=== PATIENT | female | born 1990 | race Caucasian/White ===

== ENCOUNTER 2024-02-08 17:35 | Emergency (ER) | payer SELFPAY ==
[~2024-02-08] VITALS: Ht 165.1 cm; Wt 50.0 kg
[2024-02-08 17:41] VITALS: O2SAT 100
[2024-02-08] MEDS: LIDOCAINE HCL 1%/EPI 1:200,000 30 ML VIAL MC ONE (18:15)
[2024-02-08] MEDS: LORAZEPAM 2MG/ML INJ IV STA (18:56)
[2024-02-08] MEDS: SULFAMETHOXAZOLE/TRIMETHOPRIM 800/160MG TABLET PO ONE (18:57)
[2024-02-08] MEDS: DIPHENHYDRAMINE 50MG/ML VIAL IV ONE (18:57)
[2024-02-08] MEDS: HALOPERIDOL LACTATE 5MG/ML VIAL IM STA (18:57)
[2024-02-08 19:12] LABS: CHLORIDE 108 mEq/L (98-107); POTASSIUM 3.4 mEq/L (3.5-5.1); SODIUM 143 mEq/L (136-145)
[2024-02-08 19:13] LABS: CALCIUM 8.8 mg/dL (8.7-10.4); CARBON DIOXIDE 29 mEq/L (21-32)
[2024-02-08 19:14] LABS: BASOPHILS % 0.1 % (0.0-2.0); EOSINOPHILS % 1.5 % (0.0-5.0); HEMATOCRIT. 32.5 % (36.0-48.0); HEMOGLOBIN. 10.3 g/dL (12.0-16.0); LYMPHOCYTES % 9.6 % (20.0-50.0); MEAN CORPUSCULAR HEMOGLOBIN 26.7 pg (28.0-32.0); MEAN CORPUSCULAR HGB CONC 31.8 g/dL (31.0-37.0); MEAN CORPUSCULAR VOLUME 84.1 fL (81.0-99.0); MEAN PLATELET VOLUME 7.7 fl (7.4-10.4); MONOCYTES % 4.8 % (2.0-8.0); PLATELET 464 x1000/uL (130-400); RED BLOOD CELL COUNT 3.86 mill/uL (4.2-5.4); RED CELL DISTRIBUTION WIDTH 18.1 % (11.6-14.6); WHITE BLOOD COUNT 16.9 x1000/uL (4.5-11.0)
[2024-02-08 19:17] LABS: HCG SCREEN NEGATIVE
[2024-02-08 19:18] LABS: CREATININE 0.6 mg/dL (0.6-1.0); GLUCOSE 82 mg/dL (70-105); UREA NITROGEN BLOOD 9 mg/dL (9-23)
[2024-02-08 19:19] LABS: ETHANOL BLOOD 50 mg/dL (<10)
[2024-02-08 19:20] LABS: ACETAMINOPHEN < 2 ug/mL (10-30); CREATINE KINASE 148 IU/L (34-145)
[2024-02-08] MEDS: KETOROLAC 30MG/ML VIAL IV STA (19:49)
[2024-02-08] MEDS ORDERED: CLINDAMYCIN 600 MG in DEXTROSE 5% WATER 50 ML IV ONE (20:00)
[2024-02-08] MEDS: SODIUM CHLORIDE 0.9% 500 ML IV ONE (20:49)
[2024-02-08] MEDS: CLINDAMYCIN 600MG PREMIX 50 ML IV NR (20:49)
[2024-02-08] MEDS: SODIUM CHLORIDE 0.9% 1,000 ML IV ONE (20:49)
[2024-02-08] MEDS ORDERED: ZOLPIDEM TARTRATE 5MG TABLET PO PRN (22:45)
[2024-02-08] MEDS ORDERED: IPRATROPIUM/ALBUTEROL 0.5-3(2.5)MG/3ML NEB NEB PRN (22:45)
[2024-02-08] MEDS ORDERED: DOCUSATE SODIUM 100MG CAPSULE PO PRN (22:45)
[2024-02-08] MEDS ORDERED: ACETAMINOPHEN 325MG TABLET PO PRN ×2 (22:45)
[2024-02-08] MEDS ORDERED: CLONIDINE 0.1MG TABLET PO PRN (22:45)
[2024-02-08] MEDS ORDERED: MAGNESIUM/ALUMINUM HYDROXIDE/SIMETHICONE 30ML UDC PO PRN (22:45)
[2024-02-08] MEDS ORDERED: KETOROLAC 15MG/ML VIAL IV PRN (22:45)
[2024-02-08] MEDS ORDERED: GUAIFENESIN 200MG/10ML SUGAR FREE UDC PO PRN (22:45)
[2024-02-08] MEDS ORDERED: ONDANSETRON HCL 4MG/2ML INJ IV PRN (22:45)
[2024-02-08] MEDS ORDERED: MEROPENEM 1,000 MG in SODIUM CHLORIDE 0.9% 100 ML IV SCH (22:45)
[2024-02-08] MEDS ORDERED: NITROGLYCERIN 0.4MG TABLET SL SL PRN (22:45)
[2024-02-09 00:02] LABS: IRON 17 ug/dL (50-170)
[2024-02-09] MEDS: MEROPENEM 1G/100ML IV SCH (00:03)
[2024-02-09] MEDS: MVI, ADULT NO.1 10 ML, FOLIC ACID 1 MG, THIAMINE HCL 100 MG in SODIUM CHLORIDE 0.9% 1,0... IV SCH (00:03)
[2024-02-09 00:05] LABS: TOTAL IRON BINDING CAPACITY 290 ug/dl (250-425)
[2024-02-09 00:07] LABS: T4 FREE 1.07 ng/dL (0.89-1.76)
[2024-02-09 01:40] LABS: FOLIC ACID (FOLATE) SERUM 9.21 ng/mL (>5.38)
[2024-02-09 01:41] LABS: VITAMIN B12 SERUM 295 pg/mL (211-911)
[2024-02-09 05:44] LABS: BASOPHILS % 0.2 % (0.0-2.0); EOSINOPHILS % 2.7 % (0.0-5.0); HEMOGLOBIN. 11.1 g/dL (12.0-16.0); LYMPHOCYTES % 19.8 % (20.0-50.0); MEAN CORPUSCULAR HEMOGLOBIN 27.3 pg (28.0-32.0); MEAN CORPUSCULAR HGB CONC 31.6 g/dL (31.0-37.0); MEAN CORPUSCULAR VOLUME 86.2 fL (81.0-99.0); MEAN PLATELET VOLUME 7.9 fl (7.4-10.4); MONOCYTES % 8.2 % (2.0-8.0); NEUTROPHILS % 69.1 % (40.0-76.0); PLATELET 424 x1000/uL (130-400); RED BLOOD CELL COUNT 4.05 mill/uL (4.2-5.4); RED CELL DISTRIBUTION WIDTH 18.2 % (11.6-14.6); WHITE BLOOD COUNT 11.6 x1000/uL (4.5-11.0)
[2024-02-09 06:11] LABS: CHLORIDE 114 mEq/L (98-107); SODIUM 145 mEq/L (136-145)
[2024-02-09 06:14] LABS: CALCIUM 8.1 mg/dL (8.7-10.4); CARBON DIOXIDE 26 mEq/L (21-32)
[2024-02-09 06:19] LABS: CREATININE 0.6 mg/dL (0.6-1.0); GLUCOSE 84 mg/dL (70-105); UREA NITROGEN BLOOD 9 mg/dL (9-23)
[2024-02-09 06:20] LABS: ALBUMIN 3.1 g/dL (3.2-4.8)
[2024-02-09 06:21] LABS: ALANINE AMINOTRANSFERASE 16 IU/L (10-49); ASPARTATE AMINOTRANSFERASE 17 IU/L (<34); BILIRUBIN TOTAL 0.3 mg/dL (0.1-1.0); PHOSPHORUS 3.2 mg/dL (2.5-4.9); PROTEIN TOTAL 5.6 g/dL (6.0-8.3)
[2024-02-09] MEDS: LACTATED RINGERS 1,000 ML IV SCH (08:37)
[2024-02-09] MEDS: ZINC SULFATE 220 MG ( 50 ) CAPSULE PO SCH (09:00)
[2024-02-09] MEDS: FAMOTIDINE 20MG TABLET PO SCH (09:00)
[2024-02-09] MEDS: ENOXAPARIN 40MG/0.4ML SYR SUBCUT SCH (09:00)
[2024-02-09] MEDS: ASCORBIC ACID 500 MG TABLET PO SCH (09:00)
[2024-02-09 19:10] VITALS: BP 112/82; PULSE 86; RESP 13; TEMP 36.66960; O2SAT 99
== END 2024-02-09 21:29 | disposition home or self-care (01) ==
LOC: ER 17:35 → EDBEDREQSVC 22:22 → EDBEDREQ 22:22 → EDBEDREQTM 22:22 → CANBEDREQ 02-09 18:16 → ER 02-09 21:29
DX: T55.1X2A Toxic effect of detergents, intentional self-harm, initial encounter (principal); A41.9 Sepsis, unspecified organism; F29 Unspecified psychosis not due to a substance or known physiological condition; L02.811 Cutaneous abscess of head [any part, except face]; F17.210 Nicotine dependence, cigarettes, uncomplicated
CPT/HCPCS: 80048; 80307; 80329; 80320; 82550; 82607; 82746; 84703; 84439; 83540; 83550; 83605; 84443; 85025 ×2; 87040; 36415 ×2; 84145; 71045; 96365; 96372 ×2; 96375; 99285; 80053; 83735; 84100; 93970; 96367; 96361; J1200; J1630; J1885; J3490 ×4; J2060; J2185; J7040; J7030 ×2; Z7610 ×6; C1893; J1650; J3411; J7060; G0480

== ENCOUNTER 2024-10-31 06:54 | Emergency (ER) | payer OTHER ==
[~2024-10-31] VITALS: Ht 162.6 cm; Wt 56.0 kg
[2024-10-31 07:01] VITALS: PULSE 99; O2SAT 99
[2024-10-31 07:06] VITALS: BP 123/70; RESP 20; TEMP 36.7; O2SAT 100
== END 2024-10-31 07:57 | disposition left against medical advice (07) ==
LOC: ER 06:54
DX: R10.9 Unspecified abdominal pain (principal); Z53.21 Procedure and treatment not carried out due to patient leaving prior to being seen by health care provider